=== PATIENT | male | born 1990 ===

== ENCOUNTER 2018-08-27 21:27 | Emergency (ER) | payer SELFPAY ==
[2018-08-27 21:40] VITALS: BP 126/72; PULSE 64; RESP 20; TEMP 99; O2SAT 99
--- NOTE | 2018-08-27 23:06 | C.PDOC ---
History Of Present Illness 28 year old male presents to the ER with a complaint of swollen abscess to the right testicle for one week. Patient states the the abscess opened up and began draining 2 days ago, since then swelling as decreased. Contrary to triage patient denies fever. Time Seen by Provider: 08/27/18 21:53 Chief Complaint (Nursing): Abnormal Skin Integrity History Per: Patient History/Exam Limitations: no limitations Onset/Duration Of Symptoms: Days (1 week) Current Symptoms Are (Timing): Still Present Quality Of Symptoms: Swollen, Draining Recent travel outside of the [place]: No Past Medical History Reviewed: Historical Data, Nursing Documentation, Vital Signs Vital Signs: Last Vital Signs Temp 99 F 08/27/18 21:35 Pulse 64 08/27/18 21:35 Resp 20 08/27/18 21:35 BP 126/72 08/27/18 21:35 Pulse Ox 99 08/27/18 21:35 Family History: States: Unknown Family Hx - Social History Hx Alcohol Use: Yes Hx Substance Use: No - Immunization History Hx Tetanus Toxoid Vaccination: No Hx Influenza Vaccination: No Hx Pneumococcal Vaccination: No Review Of Systems Genitourinary: Positive for: Other (Draining swollen abscess to right testicle) Physical Exam - Physical Exam Appears: Non-toxic Skin: Warm, Dry, No Rash Head: Atraumatic, Normacephalic Eye(s): bilateral: Normal Inspection, PERRL, EOMI Oral Mucosa: Moist Neck: Normal ROM, Supple Chest: Symmetrical, No Tenderness Cardiovascular: Rhythm Regular, No Friction Rub Respiratory: Normal Breath Sounds, No Rales, No Rhonchi Gastrointestinal/Abdominal: Bowel Sounds (active), Soft, No Tenderness, No Guarding, No Rebound, No Hernia Back: No CVA Tenderness Male Genital: Other (Mild swelling and tenderness to right scrotum with 1cm wound actively draining, positive induration, no fluctuance.) Extremity: Normal ROM, No Swelling Neurological/Psych: Oriented x3, Normal Speech Gait: Steady ED Course And Treatment O2 Sat by Pulse Oximetry: 99 Medical Decision Making Medical Decision Making: Patient is resting comfortably in the ER in no acute distress, vitals are stable, will start on antibiotics and discharge home with Rx and instructions to follow up with PMD or return if symptoms worsen. Disposition - Disposition Referrals: Epi Meeks MD [Staff Provider] - [facility] [Outside] Disposition: HOME/ ROUTINE Disposition Time: 23:02 Condition: STABLE Additional Instructions: Apply warm water compresses to the region 4-5 times per day over the next 4 days. Follow up with the medical doctor within 1-2 days, Return if worsened. Prescriptions: Clindamycin [Cleocin] 300 mg PO TID #30 cap Ibuprofen [Motrin] 600 mg PO TID #21 tab Instructions: Skin Abscess Forms: [employer] (Croatian) Print Language: TURKISH - Clinical Impression Clinical Impression: Scrotal abscess - PA / [employer] / Resident Statement MD/DO has reviewed & agrees with the documentation as recorded. - Scribe Statement The provider has reviewed the documentation as recorded by the Scribe Nate Pina All medical record entries made by the Jomaribmillie were at my direction and personally dictated by me. I have reviewed the chart and agree that the record accurately reflects my personal performance of the history, physical exam, medical decision making, and the department course for this patient. I have also personally directed, reviewed, and agree with the discharge instructions and disposition.
== END 2018-08-27 23:13 | disposition home or self-care (01) ==
LOC: C.ER 21:27
DX: N49.2 Inflammatory disorders of scrotum (principal)